=== PATIENT | male | born 1955 | race Hispanic/Latino ===

== ENCOUNTER 2017-02-23 08:26 | Emergency (ER) | payer OTHER ==
[~2017-02-23] VITALS: Ht 170.2 cm; Wt 86.2 kg
[2017-02-23] MEDS ORDERED: PREDNISONE20 MG PO (09:30)
[2017-02-23] MEDS ORDERED: METFORMIN HCL500 MG PO (09:30)
[2017-02-23] MEDS ORDERED: PREDNISOLONE ACE5 ML OPTH (09:31)
[2017-02-23] MEDS ORDERED: DOXYCYCLINE HY100 MG PO (09:31)
[2017-02-23] MEDS ORDERED: PRINIVIL10 MG PO (09:31)
== END 2017-02-23 12:05 | disposition home or self-care (01) ==
LOC: ED 08:26
DX: E11.65 Type 2 diabetes mellitus with hyperglycemia (principal); R56.9 Unspecified convulsions; Z79.899 Other long term (current) drug therapy; Z79.84 Long term (current) use of oral hypoglycemic drugs; Z79.52 Long term (current) use of systemic steroids
CPT/HCPCS: 80053; 85025; 96361; 96374; 99284; J7030